=== PATIENT | female | born 1975 | race Caucasian/White ===

== ENCOUNTER 2023-10-16 08:56 | Day surgery (SDC) | payer OTHER ==
[2023-10-07 17:46] VITALS: BMI 24.0
[2023-10-16 11:15] VITALS: RESP 18; TEMP 98.1
[2023-10-16 11:43] VITALS: BP 104/69; PULSE 83
== END 2023-10-16 11:20 | disposition home or self-care (01) ==
LOC: FASU-ENDO 08:56
PROVIDERS: ATTEND Internal Medicine Gastroenterology
PROC: 0DBH8ZX Excision of Cecum, Via Natural or Artificial Opening Endoscopic, Diagnostic (ICD-10-PCS; principal; 2023-10-16 10:16)
DX: Z12.11 Encounter for screening for malignant neoplasm of colon (principal); K63.5 Polyp of colon; K64.1 Second degree hemorrhoids; Z86.010 Personal history of colon polyps
CPT/HCPCS: 88305-TC